=== PATIENT | female | born 1995 | race American Indian/Alaskan Native ===

== ENCOUNTER 2016-10-12 13:47 | Emergency (ER) | payer SELFPAY ==
[2016-10-12 16:02] LABS: Basophils % (Auto) 0.4 % (0.0-1.8); Hematocrit 35.3 % (30.3-42.9); Hemoglobin 11.6 gm/dl (10.1-14.3); Mean Corpuscular HGB Conc 33 % (30-34); Mean Corpuscular Hemoglobin 27 pg (28-32); Mean Corpuscular Volume 83 fl (79-97); Platelet Count 350 K/mm3 (140-440); Red Blood Count 4.25 M/mm3 (3.65-5.03); Red Cell Distribution Width 15.4 % (13.2-15.2); White Blood Count 6.6 K/mm3 (4.5-11.0)
[2016-10-12 16:18] LABS: BUN/Creatinine Ratio 11.42; Blood Urea Nitrogen 8 mg/dL (7-17); Calcium 9.4 mg/dL (8.4-10.2); Carbon Dioxide 27 mmol/L (22-30); Creatine Kinase 108 units/L (30-135); Glucose 91 mg/dL (65-100)
[2016-10-12 16:19] LABS: Anion Gap 18 mmol/L; Potassium 3.9 mmol/L (3.6-5.0); Sodium 142 mmol/L (137-145)
[2016-10-12 16:31] LABS: Creatine Kinase MB < 1.0 ng/mL (0.0-4.0)
[2016-10-12] MEDS ORDERED: TESSALON PERLES PO ONE (16:57)
--- NOTE | 2016-10-12 17:39 | XRay Report ---
FINAL REPORT EXAM: XR CHEST ROUTINE 2V HISTORY: cough and chest pain TECHNIQUE: 2 view examination of the chest PRIORS: None FINDINGS: There is no visible pulmonary consolidation, pleural effusion, or pneumothorax. Cardiac silhouette size is normal without vascular congestion. No visible acute pathology in the regional skeleton. IMPRESSION: No evidence of acute cardiopulmonary disease
[2016-10-12 18:20] VITALS: BP 103/63
--- NOTE | 2016-10-12 18:20 | Emergency Department Report ---
Entered by DAVID KIM, acting as scribe for VIRIDIANA WONG NP. - General Chief Complaint: Upper Respiratory Infection Stated Complaint: CP/SORE THROAT/ BODY ACHES Time Seen by Provider: 10/12/16 16:31 Source: patient Mode of arrival: Ambulatory Limitations: No Limitations - History of Present Illness Initial Comments: This is a 21 y/o female, nontoxic, well nourished in appearance, no acute signs of distress with no significant PMHx presents with an upper respiratory infection that began 1 week ago. Aggravated with deep breaths and alleviated with nothing. Associated symptoms includes cough, congestion, and rhinorrhea and 7/10 achy chest pain during cough, but she denies lower extremity pain/ swelling, stiff neck, sore throat, abdominal pain, nausea, vomiting, fever, chills, SOB, TO or dizziness, numbness, and tingling. Notes PMHx of bronchitis, but she denies Hx of asthma. Denies any recent long travels. Took OTC cold medication with no relief. NKDA. PÉREZ Complaint: cough, rhinorrhea, nasal congestion Onset/Timin -: week(s) Severity: moderate Severity scale (0 -10): 7 Quality: aching Consistency: constant Improves With: nothing Worsens With: deep breaths Associated Symptoms: denies other symptoms, rhinorrhea, nasal congestion, cough , chest pain. denies: fever, chills, myalgias, diaphoresis, headache, sore throat, stiff neck, shortness of breath, abdominal pain, nausea, vomiting, diarrhea, dysuria, rash, confusion, right sweats, weight loss, epistaxis, hoarseness, ear pain Treatments Prior to Arrival: "cold medicine" - Related Data Previous Rx's Medication Instructions Recorded Last Taken Type Amoxicillin/K Clav Tab [Augmentin 1 tab PO Q12HR #20 tab 10/12/16 Unknown Rx 875 mg] Allergies Allergy/AdvReac Type Severity Reaction Status Date / Time No Known Allergies Allergy Verified 10/12/16 15:23 ED Review of Systems Comment: All other systems reviewed and negative Constitutional: denies: chills, fever Eyes: denies: eye pain, eye discharge, vision change ENT: congestion, other (rhinorrhea). denies: ear pain, throat pain, dental pain , hearing loss, epistaxis Respiratory: cough (productive), wheezing. denies: orthopnea, shortness of breath, SOB with exertion, SOB at rest, stridor Cardiovascular: chest pain. denies: palpitations, dyspnea on exertion, orthopnea, edema, syncope, paroxysmal nocturnal dyspnea Endocrine: no symptoms reported Gastrointestinal: denies: abdominal pain, nausea, vomiting, diarrhea Genitourinary: denies: urgency, dysuria, discharge Musculoskeletal: denies: back pain, joint swelling, arthralgia, myalgia Skin: denies: rash, lesions Neurological: denies: headache, weakness, numbness, paresthesias, confusion, abnormal gait, vertigo Psychiatric: denies: anxiety, depression Hematological/Lymphatic: denies: easy bleeding, easy bruising ED Past Medical Hx - Past Medical History Previous Medical History?: No - Surgical History Past Surgical History?: No - Family History Family history: no significant - Social History Smoking Status: Never Smoker Substance Use Type: None - Medications Home Medications: Home Medications Medication Instructions Recorded Confirmed Last Taken Type Amoxicillin/K Clav Tab [Augmentin 1 tab PO Q12HR #20 tab 10/12/16 Unknown Rx 875 mg] ED Physical Exam - General Limitations: No Limitations General appearance: alert, in no apparent distress - Head Head exam: Present: atraumatic, normocephalic, other (frontal sinus tenderness) - Eye Eye exam: Present: normal appearance, PERRL, EOMI. Absent: scleral icterus, conjunctival injection, nystagmus, periorbital swelling, periorbital tenderness Pupils: Present: normal accommodation - ENT ENT exam: Present: normal exam, normal orophraynx, mucous membranes moist, TM's normal bilaterally, normal external ear exam - Neck Neck exam: Present: normal inspection, full ROM. Absent: tenderness, meningismus, lymphadenopathy, thyromegaly - Respiratory Respiratory exam: Present: normal lung sounds bilaterally, chest wall tenderness (reproducible mid-sternal chest wall pain). Absent: respiratory distress, wheezes, rales, rhonchi, stridor, accessory muscle use, decreased breath sounds, prolonged expiratory - Cardiovascular Cardiovascular Exam: Present: regular rate, normal rhythm, normal heart sounds, other (chest wall tenderness upon palpation in midsternum). Absent: bradycardia , tachycardia, irregular rhythm, systolic murmur, diastolic murmur, rubs, gallop - GI/Abdominal GI/Abdominal exam: Present: soft, normal bowel sounds. Absent: distended, tenderness, guarding, rebound, rigid - Rectal Rectal exam: Present: deferred - Extremities Exam Extremities exam: Present: normal inspection, full ROM, normal capillary refill. Absent: tenderness, pedal edema, joint swelling, calf tenderness - Back Exam Back exam: Present: normal inspection, full ROM. Absent: tenderness, CVA tenderness (R), CVA tenderness (L), muscle spasm, paraspinal tenderness, vertebral tenderness, rash noted - Neurological Exam Neurological exam: Present: alert, oriented X3, CN II-XII intact, normal gait, reflexes normal. Absent: motor sensory deficit - Psychiatric Psychiatric exam: Present: normal affect, normal mood - Skin Skin exam: Present: warm, dry, intact. Absent: rash ED Course Vital Signs 10/12/16 15:23 Temperature 98.6 F Pulse Rate 87 Respiratory 18 Rate Blood Pressure 122/64 O2 Sat by Pulse 100 Oximetry - Reevaluation(s) Reevaluation #1: 10/12/16 18:05 Patient is speaking in full sentences with no signs of distress noted. ED Medical Decision Making - Lab Data Result diagrams: 10/12/16 15:44 10/12/16 15:44 - Medical Decision Making This is a 21-year-old female that presents with costochondritis, sinusitis, and upper respiratory infection. Patient was able myself. Patient is stable. Chest x-ray has been obtained with negative findings and abnormalities and dictated radiologist. Patient was notified of x-ray findings with no further questionable medication. EKG has been obtained with normal sinus rhythm and with no ST elevation or abnormalities. Troponin, CBC, BMP has been obtained with all normal findings. Patient received Augmentin, discharge. Patient was instructed to follow-up with a primary care doctor 3-5 days or if symptoms worsen and continue return to emergency room as soon as possible. At time time of discharge, the patient does not seem toxic or ill in appearance. No acute signs of distress noted. Patient agrees to discharge treatment plan of care. No further questions noted by the patient. ED Disposition Clinical Impression: Costochondritis Upper respiratory infection Qualifiers: URI type: unspecified URI Qualified Code(s): J06.9 - Acute upper respiratory infection, unspecified Sinusitis Qualifiers: Sinusitis location: frontal Chronicity: unspecified Qualified Code(s): J32.1 - Chronic frontal sinusitis Disposition: DC-01 TO HOME OR SELFCARE Is pt being admited?: No Does the pt Need Aspirin: No Condition: Stable Instructions: Amoxicillin/Clavulanate Potassium (By mouth), Sinusitis (ED), Costochondritis (ED) Additional Instructions: Follow-up with your primary care doctor in 3-5 days or if symptoms worsen continue return to emergency room as soon as possible. Prescriptions: Amoxicillin/K Clav Tab [Augmentin 875 mg] 1 tab PO Q12HR #20 tab Referrals: PRIMARY CARE, [Primary Care Provider] - 3-5 Days MARIELA HODGE MD [Staff Physician] - 3-[address] [facility] [Outside] - 3-5 Days [facility] [Outside] - 3-5 Days Forms: Work/School Release Form(ED) This documentation as recorded by the JUDY penn JASMINE,accurately reflects the service I personally performed and the decisions made by ,VIRIDIANA WONG, [employer].
== END 2016-10-12 18:20 | disposition home or self-care (01) ==
LOC: ED 13:47
DX: M94.0 Chondrocostal junction syndrome [Tietze] (principal); J06.9 Acute upper respiratory infection, unspecified; J32.1 Chronic frontal sinusitis
CPT/HCPCS: 36415; 71020; 80048; 82550; 82553; 84484; 85025; 93005; 93010; 99284